=== PATIENT | female | born 1965 | race Two or more races ===

== ENCOUNTER 2017-01-30 12:33 | Emergency (ER) | payer OTHER ==
[~2017-01-30] VITALS: Ht 157.5 cm; Wt 90.7 kg
--- NOTE | 2017-01-30 13:01 | RAD ---
Indication: Chest pain. Time of exam 12:53 PM No prior studies are available for comparison. FINDINGS: The heart size is normal. The lungs are clear. No pleural effusion or pneumothorax is identified. The pulmonary vascularity is normal. IMPRESSION: No acute abnormality detected.
--- NOTE | 2017-01-30 13:17 | EKG ---
[address] [address] Test Date: 2017-01-30 Test Time: 12:39:40 Pat Name: HARMAN CASTANON Department: Room: Gender: F Rn Informatics: FELIPA : 1965 Requested By: THERESA WEI Order Number: [id number] Reading MD: Rocky Arredondo Measurements Intervals [place] Rate: 82 P: 49 IA: 142 QRS: 9 QRSD: 90 T: 10 QT: 356 QTc: 419 Interpretive Statements SINUS RHYTHM QRS(T) CONTOUR ABNORMALITY CONSIDER ANTEROLATERAL MYOCARDIAL DAMAGE POSSIBLY ABNORMAL ECG RI6.01 Unconfirmed report No previous ECG available for comparison Electronically Signed On 02-09-2017 16:12:29 EEG TECH by Rocky Arredondo
[2017-01-30 13:31] LABS: HEMATOCRIT 43.7 % (36.0-47.0); HEMOGLOBIN 14.3 g/dL (12.0-15.5); MEAN CORPUSCULAR HEMOGLOBIN 31 pg (25-35); MEAN CORPUSCULAR HGB CONC 33 g/dL (31-37); MEAN CORPUSCULAR VOLUME 95 fL (79-100); PLATELET COUNT 283 x10^3/uL (140-400); RED BLOOD COUNT 4.59 x10^6/uL (3.50-5.40); RED CELL DISTRIBUTION WIDTH 12.1 % (11.5-14.5); WHITE BLOOD COUNT 7.6 x10^3/uL (4.0-11.0)
[2017-01-30 13:52] LABS: % BANDS 1 % (0-9); % BASOS 1 % (0-3); % EOS 3 % (0-5); % LYMPHS 30 % (24-48); % MONOS 9 % (0-10); % SEGS 56 % (35-66); PLATELET CLUMP PRESENT; PLT ESTIMATE ADEQUATE (ADEQUATE)
[2017-01-30 14:15] LABS: ALBUMIN 3.5 g/dL (3.4-5.0); ALK PHOS 72 U/L (46-116); ALT (SGPT) 38 U/L (14-59); ANION GAP 8 (6-14); AST (SGOT) 26 U/L (15-37); BLOOD UREA NITROGEN 11 mg/dL (7-20); BUN/CREATININE RATIO 12 (6-20); CALCIUM 9.2 mg/dL (8.5-10.1); CARBON DIOXIDE 27 mmol/L (21-32); CHLORIDE 105 mmol/L (98-107); CREATINE KINASE 68 U/L (26-192); CREATININE 0.9 mg/dL (0.6-1.0); GLUCOSE 93 mg/dL (70-99); LIPASE 162 U/L (73-393); POTASSIUM 3.6 mmol/L (3.5-5.1); SODIUM 140 mmol/L (136-145); TOTAL BILIRUBIN 0.3 mg/dL (0.2-1.0); TOTAL PROTEIN 7.1 g/dL (6.4-8.2)
--- NOTE | 2017-01-30 15:07 | PHYS DOC ---
Past History Past Medical History: No Pertinent History Past Surgical History: No Surgical History Smoking: Non-smoker Alcohol Use: None Drug Use: None Adult General Chief Complaint Chief Complaint: CHEST PAIN [facility] HPI 51-year-old female patient states she was at work and therefore and suddenly she felt pain in substernal area and left side of her chest with pain in left shoulder and as a tightness pain and rated her pain 8 or 9/10. Patient complaining of shortness of breath because of the pain without dizziness, nausea , focal neuro deficit, palpitation. Patient denies history of the same pain. Patient states she was not able to move her left arm because of severe pain. Patient states the pain last about 2 hours and resolved while she was in ER. Patient complaining of some pain in her neck that getting worse with movement of her head. Patient doesn't have medical problems and denies smoking and family history of coronary artery disease. Review of Systems Review of Systems Constitutional: Denies fever or chills [] Eyes: Denies change in visual acuity, redness, or eye pain [] HENT: Denies nasal congestion or sore throat [] Respiratory: Denies cough or shortness of breath [] Cardiovascular: No additional information not addressed in HPI [] GI: Denies abdominal pain, nausea, vomiting, bloody stools or diarrhea [] : Denies dysuria or hematuria [] Musculoskeletal: Denies back pain or joint pain [] Integument: Denies rash or skin lesions [] Neurologic: Denies headache, focal weakness or sensory changes [] Endocrine: Denies polyuria or polydipsia [] All other systems were reviewed and found to be within normal limits, except as documented in this note. Physical Exam Physical Exam Constitutional: Well developed, well nourished, no acute distress, non-toxic appearance. [] HENT: Normocephalic, atraumatic, bilateral external ears normal, oropharynx moist, no oral exudates, nose normal. [] Eyes: PERRLA, EOMI, conjunctiva normal, no discharge. [] Neck: Normal range of motion, no tenderness, supple, no stridor. [] Cardiovascular:Heart rate regular rhythm, no murmur [] Lungs & Thorax: Bilateral breath sounds clear to auscultation [] Abdomen: Bowel sounds normal, soft, no tenderness, no masses, no pulsatile masses. [] Skin: Warm, dry, no erythema, no rash. [] Back: No tenderness, no CVA tenderness. [] Extremities: No tenderness, no cyanosis, no clubbing, ROM intact, no edema. [] Neurologic: Alert and oriented X 3, normal motor function, normal sensory function, no focal deficits noted. [] Psychologic: Affect normal, judgement normal, mood normal. [] Current Patient Data Vital Signs Vital Signs Date Time Temp Pulse Resp B/P (MAP) Pulse Ox O2 Delivery O2 Flow Rate FiO2 01/30/17 12:53 97.0 80 18 97 Room Air Lab Results Laboratory Tests Test 01/30/17 12:49 01/30/17 13:36 White Blood Count 7.6 x10^3/uL (4.0-11.0) Red Blood Count 4.59 x10^6/uL (3.50-5.40) Hemoglobin 14.3 g/dL (12.0-15.5) Hematocrit 43.7 % (36.0-47.0) Mean Corpuscular Volume 95 fL (79-100) Mean Corpuscular Hemoglobin 31 pg (25-35) Mean Corpuscular Hemoglobin Concent 33 g/dL (31-37) Red Cell Distribution Width 12.1 % (11.5-14.5) Platelet Count 283 x10^3/uL (140-400) Segmented Neutrophils % 56 % (35-66) Band Neutrophils % 1 % (0-9) Lymphocytes % 30 % (24-48) Monocytes % 9 % (0-10) Eosinophils % 3 % (0-5) Basophils % 1 % (0-3) Platelet Estimate Adequate (ADEQUATE) Platelet Clumps, EDTA Present Prothrombin Time 9.8 SEC (9.4-11.4) Prothrombin Time INR 1.0 (0.9-1.1) Sodium Level 140 mmol/L (136-145) Potassium Level 3.6 mmol/L (3.5-5.1) Chloride Level 105 mmol/L (98-107) Carbon Dioxide Level 27 mmol/L (21-32) Anion Gap 8 (6-14) Blood Urea Nitrogen 11 mg/dL (7-20) Creatinine 0.9 mg/dL (0.6-1.0) Estimated GFR (Cockcroft-Gault) 66.0 BUN/Creatinine Ratio 12 (6-20) Glucose Level 93 mg/dL (70-99) Calcium Level 9.2 mg/dL (8.5-10.1) Total Bilirubin 0.3 mg/dL (0.2-1.0) Aspartate Amino Transferase (AST) 26 U/L (15-37) Alanine Aminotransferase (ALT) 38 U/L (14-59) Alkaline Phosphatase 72 U/L (46-116) Creatine Kinase 68 U/L (26-192) Creatine Kinase MB (Mass) < 0.5 ng/mL (0.0-3.6) Creatine Kinase MB Relative Index 0.7 % (0-4) Troponin I Quantitative < 0.017 ng/mL (0-0.055) VE-Qnw-R-Type Natriuretic Peptide 7 pg/mL (0-124) Total Protein 7.1 g/dL (6.4-8.2) Albumin 3.5 g/dL (3.4-5.0) Albumin/Globulin Ratio 1.0 (1.0-1.7) Lipase 162 U/L (73-393) EKG EKG EKG [] interpreted by me. EKG at 1239 showed normal sinus rhythm at rate of 82, poor R-wave progress in anterolateral leads, no ST and T-wave elevation, normal VT and QT interval Radiology/Procedures Radiology/Procedures [] Course & Med Decision Making Course & Med Decision Making Pertinent Labs and Imaging studies reviewed. (See chart for details) Impression of patient in ER showed 51-year-old female patient with complaining of left-sided chest and upper extremity pain that getting worse with movement. Patient stated the pain resolved in her chest and complaining of pain in her neck. Patient did not have meningeal sign. EKG, chest x-ray, labs was unremarkable. Plan discharge patient home with diagnosis of musculoskeletal chest pain. Patient instructed to follow up with her primary care physician for further evaluation of pain. [] Dragon Disclaimer Dragon Disclaimer This electronic medical record was generated, in whole or in part, using a voice recognition dictation system. Departure Departure: Impression: Primary Impression: Musculoskeletal chest pain Additional Impression: Cervical strain Disposition: HOME, SELF-CARE (At 1506) Condition: IMPROVED Referrals: SILVER GRAEC DO (PCP) Patient Instructions: Muscle Strain, Musculoskeletal Pain Additional Instructions: Take home Flexeril and [id number] ibuprofen as needed for pain Apply ice on the affected area Follow-up with your primary care physician in 3-4 days for further evaluation of chest pain Problem Qualifiers THERESA WEI MD Jan 30, 2017 15:07
[2017-01-30 15:15] VITALS: BP 120/79
== END 2017-01-30 15:17 | disposition home or self-care (01) ==
LOC: ER 12:33
DX: S16.1XXA Strain of muscle, fascia and tendon at neck level, initial encounter (principal); R07.89 Other chest pain; X58.XXXA Exposure to other specified factors, initial encounter; Y93.89 Activity, other specified; Y99.8 Other external cause status; Y92.89 Other specified places as the place of occurrence of the external cause
CPT/HCPCS: 36415; 71010; 80053; 82553; 83690; 83880; 84484; 85007; 85025; 85610; 93005; 99285-25